=== PATIENT | female | born 1975 | race Two or more races ===

== ENCOUNTER 2025-02-23 15:19 | Emergency (ER) | payer OTHER ==
[~2025-02-23] VITALS: Ht 165.1 cm; Wt 74.4 kg
[2025-02-23] MEDS ORDERED: COZAAR50 MG PO (16:07)
[2025-02-23] MEDS ORDERED: KETOROLAC TROMETHAMINE 30 MG VIAL ONE (17:28)
[2025-02-23] MEDS ORDERED: FAMOTIDINE/PF 20 MG/2 ML VIAL ONE (17:28)
[2025-02-23] MEDS ORDERED: KETOROLAC TROMETHAMINE 30 MG VIAL IV ONE (17:30)
[2025-02-23] MEDS ORDERED: FAMOTIDINE/PF 20 MG/2 ML VIAL IV ONE (17:30)
[2025-02-23] MEDS ORDERED: 0.9 % SODIUM CHLORIDE 500 ML IV ONE (17:30)
[2025-02-23 18:00] LABS: BASO % 0.3 % (0.1-1.2); EOS # 0.07 (0.04-0.54); EOS % 0.5 % (0.7-7.0); LYMPH # 0.82 (1.18-3.74); LYMPH % 5.7 % (19.3-53.1); MEAN PLATELET VOLUME 9.00 fl (9.4-12.4); MONO # 0.41 (0.24-0.82); MONO % 2.8 % (4.7-12.5); NEUT # 13.06 (1.56-6.13); NEUT % 90.3 % (34.0-71.1); RED CELL DISTRIBUTION WIDTH 15.0 % (11.6-14.4)
[2025-02-23 18:19] LABS: INR 1.06
[2025-02-23 18:25] LABS: ALT/SGPT 20.0 U/L (12-78); AST/SGOT 21.0 U/L (15-37); BILIRUBIN TOTAL 0.32 mg/dL (0.3-1.2); BUN CREA RATIO 15.0 (7.0-25.0); CREATININE SERUM 0.81 mg/dL (0.55-1.02); GFR 75.47; GLOBULINA 3.9 G/DL (2.4-3.5); GLUCOSE FASTING 103.0 mg/dL (65-100); OSMOLALITY SERUM 281.0 MOSM/KG (275-295)
[2025-02-23 19:19] LABS: URINE APPEARANCE Cloudy; URINE BILIRRUBIN Small (NEGATIVE); URINE BLOOD Large; URINE COLOR Orange; URINE GLUCOSE Negative (NEGATIVE); URINE KETONE 15 (NEGATIVE); URINE LEUKOCYTE Small; URINE NITRATE Negative; URINE UROBILINOGEN 0.2 E.U./dl
[2025-02-23 19:24] LABS: URINE BACTERIA 375.5 uL (0.0-1933); URINE EPITHELIAL CELLS 5.8 uL (0.0-38.8); URINE WBC 164.7 uL (0.0-23.2)
[2025-02-23 19:43] LABS: URINE CAST 0.43 uL (0.0-1.40); URINE PROTEIN 100 (NEGATIVE); URINE RBC > 10558.9 uL (0.0-20.8)
[2025-02-23] MEDS ORDERED: MACROBID 100 M100 MG PO (21:57)
[2025-02-23] MEDS ORDERED: FUSION PLUS CA1 EACH PO (21:57)
[2025-02-23] MEDS ORDERED: DICLOFENAC SODI50 MG PO (22:07)
== END 2025-02-23 22:46 ==
LOC: ER 15:20
PROVIDERS: General Practice
DX: D25.1 Intramural leiomyoma of uterus (principal); N93.9 Abnormal uterine and vaginal bleeding, unspecified; R10.20 Pelvic and perineal pain unspecified side; I10 Essential (primary) hypertension; Z88.0 Allergy status to penicillin; Z91.013 Allergy to seafood